=== PATIENT | male | born 1945 | race Caucasian/White ===

== ENCOUNTER → 2024-01-19 13:04 | Outpatient (BNVA) | payer MEDICARE, SELFPAY | PROVIDERS: PCP Internal Medicine; Visit Provider Podiatrist Foot & Ankle Surgery | DX: L60.3 Nail dystrophy (principal) | CPT/HCPCS: 99203 ==

== ENCOUNTER 2025-04-04 10:11 | Outpatient (CLI) | payer MEDICARE, SELFPAY ==
--- NOTE | 2025-04-04 10:32 | MR_ITS ---
WS: [id number] MRI BRAIN WITHOUT CONTRAST HISTORY: FACIAL WEAKNESS/SLURRED SPEECH COMPARISON: None available. TECHNIQUE: Diffusion imaging, multiplanar T1, T2 and FLAIR imaging obtained. There are 2 tiny diffusion abnormalities noted in the LEFT supratentorial brain. There is a tiny infarct near the LEFT caudate and in the posterior LEFT parietal cortex. Extensive cerebral and cerebellar atrophy with advanced small vessel disease throughout the supratentorial brain. Mild prior ischemic changes in the carmela. 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 Ventricles and extra-axial spaces are prominent on the basis of atrophy. There are a few tiny susceptibility artifacts in the cerebellum and supratentorial brain. No inferior displacement of cerebellar tonsils. The sella turcica and pituitary gland are unremarkable. Dural venous sinuses and [place] of [place] demonstrate no abnormality on this unenhanced studies. Paranasal sinuses: Small amount of fluid in the RIGHT maxillary sinus. Mastoid air cells: Bilateral mastoid air cell effusions. Calvarium and scalp: Intact. MR/MR head wo con* [id number] IMPRESSION: 1. Very tiny acute lacunar infarcts in the LEFT MCA territory. 1 of these infa rcts is near the LEFT caudate and the others in the posterior LEFT parietal cor zulma. No hemorrhage associated with these infarcts. 2. Severe cerebral and cerebellar atrophy and advanced small vessel disease. 3. Prior lacunar infarct in the RIGHT cerebellum and RIGHT internal capsule. 4. There are a few tiny foci of hemosiderin in the posterior fossa and suprate ntorial brain.
== END 2025-04-04 10:12 | disposition home or self-care (01) ==
PROVIDERS: PCP Internal Medicine; Visit Provider Internal Medicine
DX: R29.810 Facial weakness (principal); R47.81 Slurred speech; G31.9 Degenerative disease of nervous system, unspecified; I67.89 Other cerebrovascular disease
CPT/HCPCS: 70551